=== PATIENT | male | born 1995 | race Caucasian/White ===

== ENCOUNTER → 2025-04-22 13:59 | Outpatient (CLI) | payer OTHER, SELFPAY ==
--- NOTE | 2025-04-22 14:03 | DI.ECHO.S_ITS ---
[facility] : : [id number] : : [place] : : [id number] : : Phone: [phone] Echocardiogram Report + + :Name: GALINA COMER Study Date: 04/22/2025 Height: 73 in : :Hospital ReadingLocation: Weight: 172 lb : : Gender: Male BSA: 2.0 m2 : :: 1995 Age: 29 yrs BP: 107/72 mmHg: :Reason For Study: ENCOUNTER FOR GENERAL ADULT EXAMINATION : :Ordering Physician: TWILA, : :BERTRAM Performed By: Romi Rosales : :Referring: BERTRAM MATTSON : + + Interpretation Summary The ejection fraction is estimated to be 50-55%. There is no significant valvular heart disease. Procedure: A two-dimensional transthoracic echocardiogram with color flow and Doppler was performed. The study quality was technically adequate. There is no prior echocardiogram noted for this patient. The patient was in sinus bradycardia with heart rates between 54-61 bpm during the exam. Left Ventricle: The left ventricle is normal in size and wall thickness. The ejection fraction is estimated to be 50-55%. There are no focal wall motion abnormalities. Diastolic parameters suggest probable normal left ventricular diastolic function and normal filling pressures. Right Ventricle: The right ventricle is normal in size and function. Atria: The left atrial size is normal. Right atrial size is normal. There is no Doppler evidence for an interatrial shunt. Mitral Valve: The mitral valve leaflets appear to open well. There is trace mitral regurgitation. Aortic Valve: The aortic valve is trileaflet. The aortic valve opens well. There is no aortic valve stenosis. No aortic regurgitation is present. Tricuspid Valve: The tricuspid valve leaflets are thin and pliable. There is trace tricuspid regurgitation. Pulmonary artery pressures cannot be estimated because of the lack of a measurable TR jet velocity. Pulmonic Valve: The pulmonic valve leaflets are thin and pliable; valve motion is normal. There is mild pulmonic regurgitation. Great Vessels: The aortic root is normal size. The dimensions of the ascending aorta are normal. The IVC is of normal diameter and collapses greater than 50% with a sniff. This suggests a low right atrial pressure of 3 mm Hg. Pericardium/ Pleura There is no pericardial effusion. There is no pleural effusion. MMode/2D Measurements & Calculations LVIDd: 4.8 cm LVOT diam: 2.3 cm LVIDs: 3.4 cm Ao root diam: 3.5 cm FS: 29.2 % asc Aorta Diam: 2.6 cm EPSS: 0.56 cm Ao Arch Diam (Prox Trans): 2.4 cm IVSd: 0.73 cm LVPWd: 0.73 cm LV ames. diameter/BSA (cm/m^2): 2.4 LV sys. diameter/BSA (cm/m^2): 1.7 LA A2 area: 13.3 cm2 RA long axis: 4.2 cm LA A4 area: 14.5 cm2 RA area: 14.7 cm2 LA length (vol): 5.1 cm RA vol: 43.9 ml LA vol: 32.2 ml RA : 21.8 ml/m2 LA vol index: 16.0 ml/m2 IVC diam: 1.6 cm RVD1 (basal): 3.9 cm RVD2 (mid): 3.3 cm TAPSE: 1.9 cm Doppler Measurements & Calculations Ao V2 max: 101.1 cm/sec LVOT Max Magnus: 73.4 cm/sec Ao V2 mean: 71.5 cm/sec LV V1 max P.2 mmHg Ao max P.1 mmHg LV V1 VTI: 15.5 cm Ao mean P.3 mmHg JAYLYN(I,D): 3.0 cm2 Ao V2 VTI: 21.4 cm JAYLYN(V,D): 3.0 cm2 sev ratio: 0.72 JAYLYN indexed to BSA (cm^2/m^2): 1.5 MV E max magnus: 62.4 cm/sec PA V2 max: 90.4 cm/sec MV A max magnus: 29.1 cm/sec PA V2 mean: 60.0 cm/sec MV E/A: 2.1 PA mean P.7 mmHg Med Peak E' Magnus: 10.7 cm/sec PA pr(Accel): 7.1 mmHg E/E' med: 5.8 Lat Peak E' Magnus: 16.0 cm/sec E/E' lat: 3.9 E/e' average: 4.9 MV dec time: 0.17 sec SV(LVOT): 64.4 ml Reading Physician:04:57 PM
== END ==
PROVIDERS: Referring Provider Physician Assistant; Visit Provider Physician Assistant
DX: Z00.00 Encounter for general adult medical examination without abnormal findings (principal)
CPT/HCPCS: 93306